=== PATIENT | male | born 2000 | race African-American/Black ===

== ENCOUNTER 2021-06-29 20:31 | Emergency (ER) | payer OTHER ==
[~2021-06-29 20:31] MED LIST: AMOXICILLIN500 M2 PO
[2021-06-29 21:54] LABS: BASOPHIL 0.3 % (0-2); EOSINOPHIL 0.2 % (0-5); HCT 43.1 % (42.0-52.0); LYMPHOCYTE 10.9 % (15-48); MCH 30.2 pg (25.0-31.0); MCHC 34.8 g/dL (32.0-36.0); MCV 86.7 fL (78.0-100.0); MONOCYTE 3.9 % (0-12); NEUTROPHIL 84.3 % (41-80); NRBC 0; PLT 254 K/uL (150-400); RBC 4.97 M/uL (4.70-6.00); RDW 11.9 % (11.5-14.0); WBC 11.4 K/uL (4.0-10.5)
[2021-06-29 22:15] LABS: CREATININE 1.33 mg/dL (0.67-1.17); POTASSIUM 3.6 mmol/L (3.5-5.1)
[2021-06-29 22:45] LABS: CORONAVIRUS 2019 SARS-COV-2 NEGATIVE (NEGATIVE); INFLUENZA A NAA NEGATIVE (NEGATIVE)
[2021-06-29] MEDS ORDERED: MORGIDOX100 MG PO (23:40)
[2021-06-30] MEDS ORDERED: PEPCID AC20 MG PO (15:59)
== END 2021-06-30 00:25 | disposition home or self-care (01) ==
LOC: FER 20:31
PROVIDERS: Nurse Practitioner Family
DX: J18.9 Pneumonia, unspecified organism (principal); R94.4 Abnormal results of kidney function studies; J45.909 Unspecified asthma, uncomplicated; Z20.822 Contact with and (suspected) exposure to COVID-19
CPT/HCPCS: 36415; 71045; 80048; 84484; 85025; 85379; 93005; U0002

== ENCOUNTER 2021-06-30 13:02 | Emergency (ER) | payer OTHER ==
[~2021-06-30 13:02] MED LIST changes: +MORGIDOX100 MG PO
[2021-06-30 14:32] LABS: BASOPHIL 0.3 % (0-2); EOSINOPHIL 0.2 % (0-5); HCT 41.3 % (42.0-52.0); HGB 14.5 g/dl (13.2-18.0); LYMPHOCYTE 14.2 % (15-48); MCH 30.1 pg (25.0-31.0); MCHC 35.1 g/dL (32.0-36.0); MCV 85.9 fL (78.0-100.0); MONOCYTE 5.7 % (0-12); NEUTROPHIL 79.2 % (41-80); NRBC 0; PLT 226 K/uL (150-400); RBC 4.81 M/uL (4.70-6.00); WBC 11.1 K/uL (4.0-10.5)
[2021-06-30 15:00] LABS: BILIRUBIN NEGATIVE (NEGATIVE); BLOOD NEGATIVE Ery/uL (NEGATIVE); CLARITY CLEAR (CLEAR); COLOR YELLOW (YELLOW); GLUCOSE (U) NORMAL (NORMAL); LEUKOCYTES NEGATIVE Leu/uL (NEGATIVE); NITRITE NEGATIVE (NEGATIVE); PROTEIN NEGATIVE (NEGATIVE); SPECIFIC GRAVITY 1.015 (1.001-1.030); pH 8.5 (5.0-9.0)
[2021-06-30 15:10] LABS: ALBUMIN 3.7 g/dL (3.4-5.0); BILIRUBIN - TOTAL 0.9 mg/dL (0.2-1.0); BUN/CREAT RATIO (CALC) 10.6 RATIO; CREATININE 1.13 mg/dL (0.67-1.17); POTASSIUM 3.3 mmol/L (3.5-5.1); TOTAL PROTEIN 6.7 g/dL (6.4-8.2)
[2021-06-30] MEDS ORDERED: PEPCID AC20 MG PO (15:59)
== END 2021-06-30 16:07 | disposition home or self-care (01) ==
LOC: FER 13:02
PROVIDERS: Emergency Medicine
DX: K21.9 Gastro-esophageal reflux disease without esophagitis (principal); R06.02 Shortness of breath; J45.909 Unspecified asthma, uncomplicated; F17.290 Nicotine dependence, other tobacco product, uncomplicated
CPT/HCPCS: 36415; 76705; 80053; 81003; 85025